=== PATIENT | female | born 1985 | race Caucasian/White ===

== ENCOUNTER 2023-01-24 12:23 | Emergency (ER) | payer OTHER ==
[~2023-01-24] VITALS: Ht 167.6 cm; Wt 95.2 kg
[~2023-01-24 12:23] MED LIST: ACYCLOVIR200 MG; HYDROCODON-ACE1 EAC8 PO; LANTUS100 UNIT/1; NOVOLOG100 UNITS/; ORTHO TRI-CYCL1 EACH; PREDNISONE20 MG PO
[2023-01-24] MEDS ORDERED: ONDANSETRON ODT4 MG PO (20:13)
[2023-01-24] MEDS ORDERED: HUMALOG100 UNITS/ IV (20:27)
[2023-01-24] MEDS ORDERED: TRI-SPRINTEC1 EACH PO (20:28)
[2023-01-24] MEDS ORDERED: ATORVASTATIN CA10 MG PO (20:28)
[2023-01-24] MEDS ORDERED: VITAMIN D21250 MCG PO (20:28)
[2023-01-25] MEDS ORDERED: PRILOSEC OTC20 MG PO (12:06)
--- NOTE | 2023-01-25 21:30 | EKG ---
[facility] [address] [place] [address] Signed Sinus tachycardia Otherwise normal ECG No previous ECGs available Confirmed by Barbara Salcedo MD () on 01/25/2023 9:30:02 PM Electronically Signed By: BARBARA SALCEDO MD 01/25/232129 PATIENT NAME: JORGE IGLESIAS Electrocardiogram DATE OF : 89 PHYSICIAN: BARBARA SALCEDO MD REPORT #: [id number] REPORT IS CONFIDENTIAL AND NOT TO BE RELEASED WITHOUT AUTHORIZATION
== END 2023-01-24 21:57 | disposition home or self-care (01) ==
LOC: ED 12:23
DX: E83.42 Hypomagnesemia (principal); E86.0 Dehydration; E10.10 Type 1 diabetes mellitus with ketoacidosis without coma; M10.9 Gout, unspecified; F17.200 Nicotine dependence, unspecified, uncomplicated; Z88.8 Allergy status to other drugs, medicaments and biological substances; Z79.899 Other long term (current) drug therapy; Z79.4 Long term (current) use of insulin
CPT/HCPCS: 36415; 71045; 71260; 80053; 81003; 82803; 83690; 83735; 84484; 84703; 85025; 85379; 93005; 93010; 96361; 99284-25; J3475; J7030; Q9967

== ENCOUNTER 2023-01-25 10:11 | Emergency (ER) | payer OTHER ==
[~2023-01-25] VITALS: Ht 167.6 cm; Wt 95.2 kg
[~2023-01-25 10:11] MED LIST changes: +ATORVASTATIN CA10 MG PO; +HUMALOG100 UNITS/ IV; +ONDANSETRON ODT4 MG PO; +TRI-SPRINTEC1 EACH PO; +VITAMIN D21250 MCG PO
--- OUTSIDE RECORDS SUMMARY | 2023-01-25 10:18 | XMS ---
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 - 2 Visits in 30 Days CARE PROVIDERS BRADLEY PALUMBO Physician Current PHONE: Unknown Dena has no Care Guidelines for this patient. E.Jimbo VISIT COUNT (12 MO.) 2 [facility] TOTAL 2 NOTE: Visits indicate total known visits. ED/UCC VISIT TRACKING (12 MO.) 01/25/2023 10:12 [facility] TYPE: Emergency COMPLAINT: - CHEST PAIN 01/24/2023 12:24 [facility] TYPE: Emergency COMPLAINT: - RACING HEART, BODY SHAKES, NUMB FEET, LIGHT HEADED INPATIENT VISIT TRACKING (12 MO.) No inpatient visits to display in this time frame [email or web address]
[2023-01-25] MEDS ORDERED: PRILOSEC OTC20 MG PO (12:06)
--- NOTE | 2023-01-25 21:37 | EKG ---
[facility] [address] [place] [address] Signed Sinus tachycardia Otherwise normal ECG When compared with ECG of 24-Jan-2023 13:37 No significant change was found Confirmed by Barbara Salcedo MD () on 01/25/2023 9:37:00 PM Electronically Signed By: BARBARA SALCEDO MD 01/25/23 2137 PATIENT NAME: JORGE IGLESIAS CARLOS Electrocardiogram DATE OF : 89 PHYSICIAN: BARBARA SALCEDO MD REPORT #: [id number] REPORT IS CONFIDENTIAL AND NOT TO BE RELEASED WITHOUT AUTHORIZATION
== END 2023-01-25 12:23 | disposition home or self-care (01) ==
LOC: ED 10:11
DX: K21.9 Gastro-esophageal reflux disease without esophagitis (principal); R07.9 Chest pain, unspecified; E10.9 Type 1 diabetes mellitus without complications; M10.9 Gout, unspecified; E78.00 Pure hypercholesterolemia, unspecified; Z88.8 Allergy status to other drugs, medicaments and biological substances; Z79.4 Long term (current) use of insulin; Z79.899 Other long term (current) drug therapy
CPT/HCPCS: 36415; 71045; 76705; 80053; 83735; 84484; 85025; 93005; 93010; 99285-25